=== PATIENT | female | born 1975 | race African-American/Black ===

== ENCOUNTER 2017-11-11 14:31 | Outpatient (CLI) | payer OTHER | END 2017-11-11 14:32 | disposition home or self-care (01) | LOC: BICMAMMO 14:31 | PROVIDERS: ATTEND Family Medicine | DX: Z12.31 Encounter for screening mammogram for malignant neoplasm of breast (principal) | CPT/HCPCS: 77063; 77067 ==

== ENCOUNTER 2017-12-29 16:08 | Outpatient (CLI) | payer OTHER | END 2017-12-29 16:09 | disposition home or self-care (01) | LOC: BICRAD 16:08 | PROVIDERS: ATTEND Family Medicine | DX: M25.559 Pain in unspecified hip (principal); R10.9 Unspecified abdominal pain; R14.0 Abdominal distension (gaseous) | CPT/HCPCS: 74018 ==

== ENCOUNTER 2018-01-06 13:22 | Outpatient (CLI) | payer OTHER ==
--- NOTE | 2018-01-06 14:17 | CT ---
NONCONTRAST CT ABDOMEN AND PELVIS: Date: 01-06-18 History: Hematuria. Right flank pain for the past month. Comparison: None available. FINDINGS: The dome of the liver is excluded from view on this exam. There are several subcentimeter hypodense l esions seen throughout each lobe of the liver with larger hypodense lesions seen in the right hepatic lobe, the largest measuring 2.9 cm with the next largest lesion in the posterior segment right hepat ic lobe measuring 2 cm. The larger hypodense lesions do demonstrate attenuation coefficients suggesti ve of hepatic cysts. However, given multiplicity, cystic metastatic lesions cannot be excluded based on this exam. Limited visualized lung bases are clear. The spleen, pancreas, bilateral adrenal glands and kidneys demonstrate a grossly normal nonenhanced C T appearance. No renal calculi are visualized bilaterally and there is no hydronephrosis. The distal bilateral ureters are not well seen due to multiple unopacified structures, but no definit violeta calculus is seen along the course of either ureter. Multiple calcifications are seen in the pelvi s most likely related to phleboliths. The uterus has a grossly normal nonenhanced CT appearance. Lack of intravenous contrast does limit evaluation of the parenchymal organs. No definite enlarged lymph nodes are seen. There is no free fluid or fluid collection seen in the abd omen or pelvis. Subcentimeter sclerotic density with central lucency within the left femoral head is likely related t o small bone island. IMPRESSION: 1. Multiple scattered hypodense lesions seen throughout each lobe of the liver with larger hypodense lesions demonstrating attenuation coefficients suggesting cysts. Findings may be related to multiple hepatic cysts, but given multiplicity, cystic metastatic lesions cannot be excluded based on CT exam. 2. No renal or ureteral calculi are seen bilaterally, and there is no hydronephrosis. POS: KATLYN
== END 2018-01-06 13:23 | disposition home or self-care (01) ==
LOC: SCSCT 13:22
PROVIDERS: ATTEND Family Medicine
DX: R31.9 Hematuria, unspecified (principal); K76.89 Other specified diseases of liver
CPT/HCPCS: 74176

== ENCOUNTER 2018-01-07 14:26 | Outpatient (CLI) | payer OTHER ==
--- NOTE | 2018-01-07 15:44 | CT ---
CT OF THE ABDOMEN WITH IV CONTRAST: 01/07/18 INDICATION: Right sided abdominal pain, flank pain and hematuria. CONTRAST: 100 mL of Isovue 370 utilized. COMPARISON: Prior noncontrast CT dated 01/06/18. FINDINGS: There are multiple cysts within the liver. The largest is seen within segment VII of right hepatic lo be measuring 2.7 cm. Adrenal gland and kidneys appear within normal limits. There is a small subcentimeter hypodensity wit hin the left mid kidney likely representing a tiny cyst. The pancreas and spleen appear within normal limits. There is some suggested wall thickening involving the distal gastric antrum which may be related to u nderdistention. No pathologically enlarged lymph nodes are evident. No acute osseous abnormality is evident. IMPRESSION: 1. Hepatic cysts. 2. Mild wall thickening involving the distal gastric antrum may be related to underdistention; however, gastritis is not excluded. POS: CHANNING
== END 2018-01-07 14:27 | disposition home or self-care (01) ==
LOC: SCSCT 14:26
PROVIDERS: ATTEND Family Medicine
DX: R31.9 Hematuria, unspecified (principal); R10.9 Unspecified abdominal pain; K76.89 Other specified diseases of liver; K31.89 Other diseases of stomach and duodenum
CPT/HCPCS: 74160